=== PATIENT | female | born 1980 | race Hispanic/Latino ===

== ENCOUNTER 2016-05-30 01:46 | Emergency (ER) | payer SELFPAY ==
[~2016-05-30] VITALS: Ht 165.1 cm; Wt 89.6 kg
[2016-05-30 02:34] LABS: HEMATOCRIT 34.7 % (36.0-46.0); MCH 28.2 PG (29.0-34.0); MCHC 34.6 G/DL (30.0-36.0); MCV 81.6 FL (83-99); MEAN PLAT.VOLUME 10.4 uM^3 (9.5-12.4); PLATELET COUNT 274 K/uL (156-360); RBC DIS.WIDTH-CV 13.1 % (11.8-14.6); RBC DIS.WIDTH-SD 37.6 % (39-53); RED BLOOD COUNT 4.25 M/uL (3.80-5.20); WHITE BLOOD COUNT 7.9 K/uL (4.1-10.2)
[2016-05-30 02:45] LABS: CHLORIDE 108 mEq/L (99-109); POTASSIUM 3.4 mEq/L (3.7-5.4); SODIUM 142 mEq/L (136-147)
[2016-05-30 02:47] LABS: GLUCOSE 113 mg/dL (70-99)
[2016-05-30 02:48] LABS: ANION GAP 10 MEQ/L (2-14)
[2016-05-30 02:49] LABS: TOTAL BILIRUBIN 0.4 mg/dL (0.0-1.0)
[2016-05-30 02:50] LABS: ALKALINE PHOSPHATASE 90 IU/L (3-129)
[2016-05-30 02:51] LABS: GFR ESTIMATE (CALCULATED) > 59 mL/min/
[2016-05-30 02:52] LABS: UREA NITROGEN (BUN) 14 mg/dL (9-23)
[2016-05-30 02:59] LABS: QUANTITATIVE HCG < 4.0 MIU/ML
[2016-05-30] MEDS ORDERED: REGLAN10 MG PO (04:02)
[2016-05-30] MEDS ORDERED: IMITREX25 MG PO (04:02)
[2016-05-30 04:20] VITALS: BP 108/70
== END 2016-05-30 04:20 | disposition home or self-care (01) ==
LOC: EME → EDBD 01:46 → EME 04:20
PROVIDERS: Emergency Medicine
DX: G43.909 Migraine, unspecified, not intractable, without status migrainosus (principal)
CPT/HCPCS: 70450; 80053; 84702; 85027; 99281; 99284; J2765; J3030; J7030